=== PATIENT | male | born 1945 | race Hispanic/Latino ===

== ENCOUNTER 2019-02-03 15:10 | Emergency (ER) | payer MEDICARE, OTHER ==
[~2019-02-03] VITALS: Ht 180.3 cm; Wt 81.6 kg
[2019-02-03] MEDS ORDERED: TETANUS/DIPHTHERIA TOX ADULT 0.5 ML SYR IM ONE (16:00)
== END 2019-02-03 17:10 | disposition home or self-care (01) ==
LOC: ER 15:10
DX: S41.111A Laceration without foreign body of right upper arm, initial encounter (principal); W27.8XXA Contact with other nonpowered hand tool, initial encounter; Y92.008 Other place in unspecified non-institutional (private) residence as the place of occurrence of the external cause
CPT/HCPCS: 90471; 90714; 99284

== ENCOUNTER 2022-06-20 13:26 | Emergency (ER) | payer MEDICARE, OTHER ==
[~2022-06-20] VITALS: Ht 180.3 cm; Wt 81.6 kg
[2022-06-20] MEDS ORDERED: LIDOCAINE 1% 10 ML MULTIDOSE VIAL IJ ONE (13:45)
[2022-06-20] MEDS ORDERED: TETANUS/DIPHTHERIA TOX ADULT 0.5 ML SYR IM ONE (13:45)
[2022-06-20 15:30] VITALS: BP 141/70
== END 2022-06-20 15:32 | disposition home or self-care (01) ==
LOC: ER 13:30
DX: S01.112A Laceration without foreign body of left eyelid and periocular area, initial encounter (principal); W01.198A Fall on same level from slipping, tripping and stumbling with subsequent striking against other object, initial encounter; Y93.01 Activity, walking, marching and hiking; Y92.89 Other specified places as the place of occurrence of the external cause; I10 Essential (primary) hypertension
CPT/HCPCS: 70450; 72125; 90471; 90714; 99283

== ENCOUNTER → 2022-09-16 | Outpatient (RCR) | payer OTHER | LOC: PT 12:37 | PROVIDERS: ATTEND Family Medicine | DX: M62.59 Muscle wasting and atrophy, not elsewhere classified, multiple sites (principal); R26.89 Other abnormalities of gait and mobility; R29.6 Repeated falls ==

== ENCOUNTER 2022-09-23 21:43 | Emergency (ER) | payer MEDICARE, OTHER ==
[~2022-09-23] VITALS: Ht 180.3 cm; Wt 73.9 kg
[2022-09-23] MEDS ORDERED: LIDOCAINE HCL 1% LOCAL INJ 20 ML VIAL INJ ONE (22:45)
== END 2022-09-24 01:23 | disposition home or self-care (01) ==
LOC: ER 21:54
DX: S01.01XA Laceration without foreign body of scalp, initial encounter (principal); S01.112A Laceration without foreign body of left eyelid and periocular area, initial encounter; S61.512A Laceration without foreign body of left wrist, initial encounter; S51.012A Laceration without foreign body of left elbow, initial encounter; W01.0XXA Fall on same level from slipping, tripping and stumbling without subsequent striking against object, initial encounter; Y93.01 Activity, walking, marching and hiking; Y92.89 Other specified places as the place of occurrence of the external cause; I10 Essential (primary) hypertension
CPT/HCPCS: 70450; 70486; 72125; 99283; J2001

== ENCOUNTER → 2022-10-17 | Outpatient (RCR) | payer OTHER | LOC: PT 09-19 06:49 | PROVIDERS: ATTEND Family Medicine | DX: M62.59 Muscle wasting and atrophy, not elsewhere classified, multiple sites (principal); R26.89 Other abnormalities of gait and mobility; R29.6 Repeated falls ==

== ENCOUNTER 2022-11-14 08:00 | Outpatient (RCR) | payer OTHER | END 2022-11-16 | LOC: PT 08:00 | PROVIDERS: ATTEND Family Medicine | DX: M62.59 Muscle wasting and atrophy, not elsewhere classified, multiple sites (principal); R26.89 Other abnormalities of gait and mobility; R29.6 Repeated falls ==

== ENCOUNTER 2022-11-25 07:49 | Outpatient (RCR) | payer OTHER | END 2022-12-17 | LOC: PT 07:49 | PROVIDERS: ATTEND Family Medicine | DX: M62.59 Muscle wasting and atrophy, not elsewhere classified, multiple sites (principal); R29.6 Repeated falls; R26.89 Other abnormalities of gait and mobility ==

== ENCOUNTER 2024-09-03 08:04 | Emergency (ER) | payer MEDICARE, OTHER ==
[~2024-09-03] VITALS: Ht 180.3 cm; Wt 73.9 kg
[2024-09-03] MEDS ORDERED: ULTRAM 50MG50 MG PO (09:24)
[2024-09-03] MEDS ORDERED: AZITHROMYCIN250 MG PO (09:24)
[2024-09-03 09:34] VITALS: PULSE 70; RESP 16; TEMP 98.7; O2SAT 100
== END 2024-09-03 09:37 | disposition home or self-care (01) ==
LOC: ER 08:10
DX: S21.112A Laceration without foreign body of left front wall of thorax without penetration into thoracic cavity, initial encounter (principal); W01.198A Fall on same level from slipping, tripping and stumbling with subsequent striking against other object, initial encounter; Y92.89 Other specified places as the place of occurrence of the external cause; B02.9 Zoster without complications; I10 Essential (primary) hypertension
CPT/HCPCS: 71250; 99283

== ENCOUNTER 2025-02-27 19:49 | Inpatient (IN) | payer OTHER ==
[~2025-02-27] VITALS: Ht 185.4 cm; Wt 73.7 kg
[~2025-02-27 19:49] MED LIST: AZITHROMYCIN250 MG PO; ULTRAM 50MG50 MG PO
[2025-02-27 19:50] VITALS: TEMP 97.9
[2025-02-27] MEDS: TRAMADOL HCL 50 MG TAB PO STA (20:38)
[2025-02-27 21:00] VITALS: BP 125/81; PULSE 87; RESP 20; TEMP 98.4; O2SAT 100
[2025-02-27 22:05] LABS: BASOPHILS % 0.1 % (0.0-1.0); EOSINOPHILS % 0.2 % (0.0-6.0); LYMPHOCYTES % 13.6 % (18.0-39.1); MONOCYTES % 7.6 % (4.4-11.3); NEUTROPHILS % 77.8 % (38.7-80.0); RED CELL DISTRIBUTION WIDTH 13.1 % (11.7-14.4)
[2025-02-27 22:19] LABS: EST GLOMERULAR FILTRATION RATE 95.0 ML/MIN (>=60)
[2025-02-27] MEDS: SODIUM CHLORIDE 0.9% 1000ML 1,000 ML IV STA (23:33)
[2025-02-27] MEDS: Morphine 4mg INJECTION 4 MG/ML INJ IV PRN (23:34)
[2025-02-27] MEDS: ONDANSETRON HCL INJ 2MG/ML 2ML 2 MG/ML VIAL IV PRN (23:34)
[2025-02-28] VITALS (9 sets, daily range): BP systolic 119–164; BP diastolic 61–72; PULSE 71–88; RESP 17–18; TEMP 97.9–98.7; O2SAT 98–100
[2025-02-28] MEDS: SODIUM CHLORIDE 0.9% 1000ML 1,000 ML IV SCH (05:15)
[2025-02-28 08:59] LABS: BASOPHILS % 0.3 % (0.0-1.0); EOSINOPHILS % 0.8 % (0.0-6.0); LYMPHOCYTES % 12.5 % (18.0-39.1); MONOCYTES % 9.7 % (4.4-11.3); NEUTROPHILS % 76.4 % (38.7-80.0); RED CELL DISTRIBUTION WIDTH 13.1 % (11.7-14.4)
[2025-02-28 09:33] LABS: EST GLOMERULAR FILTRATION RATE 98.0 ML/MIN (>=60)
[2025-02-28 09:56] LABS: OSMOLALITY,SERUM 259.0 mOsm/kg (278-305)
[2025-03-01] VITALS (8 sets, daily range): BP systolic 117–167; BP diastolic 52–70; PULSE 66–101; RESP 16–20; TEMP 97.7–98.6; O2SAT 98–100
[2025-03-01] MEDS: HYDRALAZINE HCL 20 MG/ML VIAL IV PRN (01:31)
[2025-03-01 05:54] LABS: BASOPHILS % 0.2 % (0.0-1.0); EOSINOPHILS % 0.8 % (0.0-6.0); LYMPHOCYTES % 15.7 % (18.0-39.1); MONOCYTES % 11.8 % (4.4-11.3); NEUTROPHILS % 71.2 % (38.7-80.0); RED CELL DISTRIBUTION WIDTH 13.2 % (11.7-14.4)
[2025-03-01 06:22] LABS: EST GLOMERULAR FILTRATION RATE 100.0 ML/MIN (>=60)
[2025-03-01] MEDS ORDERED: DEXAMETHASONE SOD PHOS INJ 4 MG/ML SDV ONE (06:38)
[2025-03-01] MEDS ORDERED: PHENYLEPHRINE HCL 1% 10 MG/ML VIAL ONE (06:38)
[2025-03-01] MEDS ORDERED: SODIUM CHLORIDE 0.9% INJ 10 ML VIAL ONE (06:38)
[2025-03-01] MEDS ORDERED: SEVOFLURANE INHAL SOLN 250 ML PEN BTL ONE (06:38)
[2025-03-01] MEDS ORDERED: FENTANYL CITRATE/PF 100MCG/2 ML INJ ONE (06:38)
[2025-03-01] MEDS ORDERED: ONDANSETRON HCL INJ 2MG/ML 2ML 2 MG/ML VIAL ONE (06:38)
[2025-03-01] MEDS ORDERED: PROPOFOL IV EMULSION 10 MG/ML 20 ML VIAL ONE (06:38)
[2025-03-01] MEDS ORDERED: ACETAMINOPHEN 1000 MG/100 ML 100 ML IV ONE (06:38)
[2025-03-01] MEDS ORDERED: ROCURONIUM BROMIDE 1 ML IV ONE (06:40)
[2025-03-01] MEDS ORDERED: SUCCINYLCHOLINE CHLORIDE 20 MG/ML 10ML VIAL ONE (06:40)
[2025-03-01] MEDS ORDERED: ROPIVACAINE/EPI/CLONIDINE/KET 50 ML SYRINGE INJ ONE (08:00)
[2025-03-01] MEDS ORDERED: SUGAMMADEX SODIUM 200 MG/2 ML VIAL IV ONE (08:46)
[2025-03-01] MEDS: CEPHALEXIN 500 MG CAP PO SCH (12:18)
[2025-03-01] MEDS: POTASSIUM CHLORIDE 20MEQ/100ML 100 ML IV ONE ×2 (12:45→12:54)
[2025-03-01] MEDS: MAGNESIUM SULFATE 2GM/50ML 50 ML IV ONE ×2 (12:45→12:54)
[2025-03-01] MEDS: ENOXAPARIN 30 MG/0.3 ML SYR SC SCH (14:55)
[2025-03-01] MEDS ORDERED: ARTIFICIAL TEARS (OPTH) 15 ML BTL OU SCH (16:30)
[2025-03-02 03:08] VITALS: BP 137/65; PULSE 69; RESP 18; TEMP 97.5; O2SAT 100
[2025-03-02 06:18] VITALS: PULSE 81; RESP 20; O2SAT 96
[2025-03-02 06:18] LABS: BASOPHILS % 0.0 % (0.0-1.0); EOSINOPHILS % 0.0 % (0.0-6.0); LYMPHOCYTES % 10.2 % (18.0-39.1); MONOCYTES % 11.6 % (4.4-11.3); NEUTROPHILS % 77.9 % (38.7-80.0); RED CELL DISTRIBUTION WIDTH 13.3 % (11.7-14.4)
[2025-03-02 06:43] LABS: EST GLOMERULAR FILTRATION RATE 101.0 ML/MIN (>=60)
[2025-03-02 08:28] VITALS: BP 137/65; PULSE 81; RESP 20; TEMP 97.5; O2SAT 96
[2025-03-02 08:39] VITALS: BP 157/65; PULSE 71; RESP 20; TEMP 97.5; O2SAT 100
[2025-03-02] MEDS: ACETAMINOPHEN 325 MG TAB PO PRN (09:38)
[2025-03-02] MEDS ORDERED: HYDROCODON-ACE1 EA11 PO (10:35)
[2025-03-02] MEDS ORDERED: CEPHALEXIN500 MG PO (10:35)
[2025-03-02] MEDS ORDERED: ELIQUIS2.5 MG PO (10:35)
[2025-03-02] MEDS ORDERED: AMLODIPINE BESY10 MG PO (10:41)
[2025-03-02] MEDS ORDERED: ATORVASTATIN CA20 MG PO (10:41)
[2025-03-02] MEDS ORDERED: COREG6.25 MG PO (10:41)
[2025-03-02] MEDS ORDERED: HYDROCHLOROTHIA25 MG PO (10:43)
[2025-03-02] MEDS ORDERED: THIAMINE HCL PO (10:43)
[2025-03-02] MEDS ORDERED: LOSARTAN POTASS25 MG PO (10:43)
[2025-03-02] MEDS ORDERED: GABAPENTIN300 MG PO (10:43)
[2025-03-02 11:24] VITALS: BP 142/76; PULSE 82; RESP 18; TEMP 97.8; O2SAT 100
[2025-03-02 16:21] VITALS: BP 131/89; PULSE 71; RESP 20; TEMP 97.1; O2SAT 100
== END 2025-03-02 18:05 | disposition home or self-care (01) | DRG 522 ==
LOC: ER 20:01 → ERHOLD 21:13 → MED/SURG2 02-28 01:10
PROVIDERS: ADMIT Family Medicine Adult Medicine; ATTEND Family Medicine Adult Medicine
PROC: 0SRR0JA Replacement of Right Hip Joint, Femoral Surface with Synthetic Substitute, Uncemented, Open Approach (ICD-10-PCS; principal; 2025-03-01 08:09)
DX: S72.031A Displaced midcervical fracture of right femur, initial encounter for closed fracture (principal); E87.1 Hypo-osmolality and hyponatremia; R17 Unspecified jaundice; S09.8XXA Other specified injuries of head, initial encounter; S00.03XA Contusion of scalp, initial encounter; W01.190A Fall on same level from slipping, tripping and stumbling with subsequent striking against furniture, initial encounter; Y92.008 Other place in unspecified non-institutional (private) residence as the place of occurrence of the external cause; R29.6 Repeated falls; T50.2X5A Adverse effect of carbonic-anhydrase inhibitors, benzothiadiazides and other diuretics, initial encounter; I11.9 Hypertensive heart disease without heart failure; I1A.0 Resistant hypertension; I45.10 Unspecified right bundle-branch block; D64.89 Other specified anemias; E78.5 Hyperlipidemia, unspecified; E80.6 Other disorders of bilirubin metabolism; R26.9 Unspecified abnormalities of gait and mobility; F03.90 Unspecified dementia, unspecified severity, without behavioral disturbance, psychotic disturbance, mood disturbance, and anxiety; Z86.73 Personal history of transient ischemic attack (TIA), and cerebral infarction without residual deficits; Z71.81 Spiritual or religious counseling
CPT/HCPCS: 36415; 70450; 71045; 72170; 80053; 82550; 82607; 82947; 83690; 83880; 84295; 84443; 84484; 84520; 85025; 86850; 86900; 93005; 94799; 96361; 99252; 99284; C1776; J0330; J0360; J0690; J1100; J1650; J2270; J2371; J2405; J3475; J3480; J7030